=== PATIENT | female | born 1995 | race Caucasian/White ===

== ENCOUNTER 2016-07-10 06:18 | Emergency (ER) | payer MEDICAID ==
[~2016-07-10] VITALS: Ht 172.7 cm; Wt 90.9 kg
[2016-07-10 06:20] VITALS: BP 118/80
[2016-07-10] MEDS ORDERED: CefTRIAXone SODIUM 1 GM/VIAL IM ONE (07:15)
[2016-07-10] MEDS ORDERED: LIDOCAINE HCL/PF 1% 2 ML VIAL IM ONE (07:15)
== END 2016-07-10 07:57 | disposition home or self-care (01) ==
LOC: EMS 06:19
DX: L02.31 Cutaneous abscess of buttock (principal); F17.210 Nicotine dependence, cigarettes, uncomplicated
CPT/HCPCS: 81025; 96372; 99284; J0696; J3490

== ENCOUNTER 2016-07-22 10:27 | Emergency (ER) | payer MEDICAID ==
[~2016-07-22] VITALS: Ht 172.7 cm; Wt 90.9 kg
[2016-07-22 10:51] VITALS: BP 130/89
[2016-07-22] MEDS ORDERED: ALBU8HFA IH (10:57)
== END 2016-07-22 13:12 | disposition left against medical advice (07) ==
LOC: EMS 10:28
DX: L02.91 Cutaneous abscess, unspecified (principal); Z53.21 Procedure and treatment not carried out due to patient leaving prior to being seen by health care provider

== ENCOUNTER 2016-10-14 03:22 | Emergency (ER) | payer MEDICAID, OTHER ==
[~2016-10-14] VITALS: Ht 172.7 cm; Wt 93.2 kg
[~2016-10-14 03:22] MED LIST: ALBU8HFA IH
[2016-10-14] MEDS ORDERED: KETOROLAC TROMETHAMINE 30 MG/ML VIAL IM ONE (04:15)
[2016-10-14 05:14] VITALS: BP 124/80
== END 2016-10-14 05:34 | disposition home or self-care (01) ==
LOC: EMS 03:22
DX: R07.89 Other chest pain (principal); F17.210 Nicotine dependence, cigarettes, uncomplicated
CPT/HCPCS: 71010; 96372; 99283; J1885

== ENCOUNTER 2017-01-12 13:07 | Emergency (ER) | payer MEDICAID, OTHER ==
[~2017-01-12] VITALS: Ht 172.7 cm; Wt 77.0 kg
[2017-01-12] MEDS ORDERED: IBUPROFEN 800 MG TABLET PO ONE (13:45)
[2017-01-12] MEDS ORDERED: METHOCARBAMOL 500 MG TABLET PO ONE (13:45)
[2017-01-12 15:24] VITALS: BP 134/90
== END 2017-01-12 15:28 | disposition home or self-care (01) ==
LOC: EMS 13:08
DX: R07.89 Other chest pain (principal); R20.0 Anesthesia of skin; F17.210 Nicotine dependence, cigarettes, uncomplicated
CPT/HCPCS: 99283

== ENCOUNTER 2018-10-14 14:41 | Emergency (ER) | payer MEDICAID ==
[~2018-10-14] VITALS: Ht 172.7 cm; Wt 86.4 kg
[2018-10-14] MEDS ORDERED: IBUPROFEN 600 MG TABLET PO ONE (16:45)
[2018-10-14 17:57] VITALS: BP 139/80
== END 2018-10-14 17:59 | disposition home or self-care (01) ==
LOC: EMS 14:41
DX: M70.21 Olecranon bursitis, right elbow (principal); F17.210 Nicotine dependence, cigarettes, uncomplicated